=== PATIENT | female | born 1960 | race Caucasian/White ===

== ENCOUNTER 2018-07-15 07:58 | Outpatient (CLI) | payer OTHER, SELFPAY ==
[2018-07-15 10:43] LABS: Glucose 115 mg/dL (70-100)
== END 2018-07-15 08:18 ==
PROVIDERS: PCP General Practice; Visit Provider General Practice
DX: R73.03 Prediabetes (principal)
CPT/HCPCS: 36415; 82947

== ENCOUNTER 2018-12-29 07:14 | Outpatient (CLI) | payer OTHER, SELFPAY ==
[2018-12-29 09:42] LABS: Glucose 91 mg/dL (70-100)
== END 2018-12-29 07:34 ==
PROVIDERS: PCP General Practice; Visit Provider General Practice
DX: R73.09 Other abnormal glucose (principal)
CPT/HCPCS: 36415; 82947

== ENCOUNTER 2022-04-07 21:08 | Observation (INO) | payer OTHER, SELFPAY ==
[2022-04-07] VITALS (22 sets, daily range): BP systolic 147–196; BP diastolic 94–120; PULSE 78–118; RESP 16–27; TEMP 36.8; O2SAT 95–98
--- NOTE | 2022-04-07 21:00 | RT.EKG_ITS ---
APPROVED REPORT Exam: Resting ECG Reason for Exam: chest pain Patient Location: E HR:113 bpm ECG Measurements Heart Rate 113 AXIS MI 152 P 15 QRSd 106 QRS -6 QT 338 T -5 QTc 463 Conclusion Sinus tachycardia...rate> 99 Probable left atrial enlargement...P >50mS, <-0.10mV V1
--- NOTE | 2022-04-07 21:00 | DI.RAD_ITS ---
Exam(s) XR PORTABLE CHEST AP EXAM: XR PORTABLE CHEST AP CLINICAL HISTORY: chest pain. TECHNIQUE: 2D digital imaging was performed. COMPARISON: No exams were available for comparison FINDINGS: Single AP portable view. Heart size is upper normal. The mediastinum is not widened. Lungs are clear. No infiltrates nor obvious pleural effusions. IMPRESSION: No acute pulmonary findings on this single AP portable view of the chest. DATA REPOSITORY: RADIATION DOSE DELIVERED: All CT scans at this facility use at least one of these dose optimization techniques: automated exposure control; mA and/or kV adjustment per patient size (includes targeted e xams where dose is matched to clinical indication); or iterative reconstruction.
[2022-04-07 21:42] LABS: Abs Immature Grans 0.03 10^3/uL (0.0-0.06); Absolute Basophil Count 0.02 10^3/uL (0.0-0.2); Absolute Eosinophil Count 0.08 10^3/uL (0.0-0.7); Absolute Lymphocyte Count 1.76 10^3/uL (1.2-3.4); Absolute Monocyte Count 0.78 10^3/uL (0.1-0.8); Absolute Neutrophil Count 4.85 10^3/uL (1.2-6.7); Basophils % 0.3; Eosinophils % 1.1; HCT 47.1 % (36.0-46.0); HGB 16.5 g/dL (11.2-15.7); Immature Grans % 0.4; Lymphocytes % 23.4; MCH 31.9 pg (27.0-33.0); MCV 91 fL (80-95); MPV 9.5 fL (8.0-11.0); Monocytes % 10.4; Neutrophils % 64.4; Platelet Count 153 10^3/uL (130-400); RBC 5.17 10^6/uL (3.93-5.22); WBC 7.52 10^3/uL (4.4-10.8)
[2022-04-07] MEDS: nitroGLYcerin 0.4 MG TAB SL (21:43)
[2022-04-07] MEDS: Aspirin 81 MG CHEW 324 MG CH (21:43)
[2022-04-07] MEDS: Normal Saline 500 ML IV (21:43)
--- NOTE | 2022-04-07 21:45 | DI.CT_ITS ---
Exam(s) CT CHEST PE CTA EXAM: CT CHEST PE CTA CLINICAL HISTORY: shortness of breath, tachycardia, chest pain. TECHNIQUE: Imaging Protocol: CT angiography of the chest was performed using pulmonary embolus loretta col. Multi planar reconstructions were performed. CONTRAST MATERIAL: Intravenous: Omnipaque 350 Contrast volume: 100 cc COMPARISON: CR,XR XR PORTABLE CHEST AP from 04/07/2022 FINDINGS: CHEST: PULMONARY ARTERIES: There are no intraluminal filling defects to suggest acute pulmonary emboli. LUNGS: There are no infiltrates nor evidence of pulmonary infarction.. There are no pleural effusions . MEDIASTINUM: There is no hilar nor mediastinal adenopathy. Visualized thyroid unremarkable. CARDIAC: Heart size is upper normal. There is no pericardial effusion.Caliber of the thoracic aorta is within normal limits. There is no significant shift of the interventricular septum. PARTIALLY VISUALIZED UPPERMOST ABDOMEN: There is a 6 cm cyst in the superior the right kidney partial ly included in the field view. No adrenal masses OSSEOUS: No significant osseous lesions.. IMPRESSION: 1. No evidence of acute pulmonary emboli. No evidence of pulmonary infarction.No pleural effusions. 2. No confluent pulmonary infiltrates. 3. No significant intrathoracic adenopathy 6 cm cyst right kidney partially included in the field of view RADIATION DOSE DELIVERED: 375.72mGy.cm Total DLP DATA REPOSITORY: All CT scans at this facility are submitted to the National Radiology Data Registry (NRDR) Dose Index Registry (DIR) with the [employer] (ACR). RADIATION OPTIMIZATION: All CT scans at this facility use at least one of these dose optimization te chniques: automated exposure control; mA and/or kV adjustment per patient size (includes targeted exa ms where dose is matched to clinical indication); or iterative reconstruction.
[2022-04-07 22:12] LABS: Source Nasal/Nares
[2022-04-07] MEDS: Metoprolol 5 MG/5 ML VIAL IVP (22:14)
[2022-04-07 22:27] LABS: ALT 76 U/L (16-63); AST 58 U/L (15-37); Albumin 3.8 g/dL (3.4-5.0); Alkaline Phosphatase 54 U/L (46-116); Anion Gap 10.9 mmol/L (3-11); BUN 13 mg/dL (7-18); Bilirubin, Total 0.7 mg/dL (0.2-1.0); CO2 28.1 mmol/L (21.0-32.0); CREATININE 0.8 mg/dL (0.70-1.30); Calcium 9.3 mg/dL (8.5-10.1); Chloride 101 mmol/L (98-107); Glucose 115 mg/dL (74-106); Potassium 3.7 mmol/L (3.5-5.1); Sodium 140 mmol/L (136-145); Total Protein 6.6 g/dL (6.4-8.2); Troponin I < 50 ng/L (<or=60)
--- NOTE | 2022-04-07 22:43 | W.ED.GENAD ---
Discharge Plan Disposition Patient Disposition: [facility] INPATIENT Condition: Stable Discharge Details Clinical Impression: Essential hypertension, Chest pain Admit Date/Time: 04/07/22 23:57 Admit Provider: Cristofer Mata Attending Provider: Cristofer Mata Primary Care Provider: Cristofer Mata ED Provider: Rizwana Morrison Discharge Data Discharge Date/Time-TO BE ENTERED AT DEPARTURE: 04/08/22 01:02 Medical Decision Making Heart score of 4, concerning history and significant family history of coronary artery disease EKG does not show evidence of acute ischemia Patient presented tachycardic and significantly hypertensive blood pressure 190/115 After Lopressor, blood pressure improved After nitroglycerin, his chest pain was resolved Think the patient would benefit from stress test He received aspirin upon arrival, 324 Given his tachycardia, chest discomfort did order CTA which is pending LFTs are mildly elevated likely consistent with his history of alcoholism At this time I think the patient should be hospitalized for cardiac observation with serial troponin and stress test Medical Records Medical records reviewed: Yes I reviewed the patient's medical records. Lab Data Lab results reviewed: Yes I reviewed the patient's lab results. HPI General Date/Time Provider Initiated Documentation: 04/07/22 21:10. HPI Narrative: This 62-year-old gentleman with history of hypertension presents with report of intermittent chest pain over the course of the past week and a half with constant chest pain at approximately 130 today. Denies known exertional component. Denies shortness of breath. States he felt very tired all weekend. He is not been able to exert himself secondary to fatigue. He denies any calf pain or swelling. He has not had primary care provider for the past 2+ years reportedly. He was on blood pressure medication previously which she has not taken. He denies known history of hyperlipidemia. He does have significant family cardiac history per patient. Does not smoke tobacco. Drinks alcohol daily, 2-3 beers daily per patient. Denies recent flights, surgeries, long. Denies any calf pain or swelling. Related Data Home Medications Medication Instructions Recorded Confirmed atenolol 25 mg tablet 25 mg PO DAILY #30 tabs 04/08/22 benazepril 20 mg tablet 20 mg PO DAILY #30 tabs 04/08/22 hydrochlorothiazide 25 mg tablet 25 mg PO DAILY #30 tabs 04/08/22 nitroglycerin 0.4 mg sublingual 0.4 mg sublingual Q5 MIN PRN X3 04/08/22 tablet PRN chest pain #30 tabs Previous Rx's Medication Instructions Recorded atenolol 25 mg tablet 25 mg PO DAILY #30 tabs 04/08/22 benazepril 20 mg tablet 20 mg PO DAILY #30 tabs 04/08/22 hydrochlorothiazide 25 mg tablet 25 mg PO DAILY #30 tabs 04/08/22 nitroglycerin 0.4 mg sublingual 0.4 mg sublingual Q5 MIN PRN X3 04/08/22 tablet PRN chest pain #30 tabs Allergies Allergy/AdvReac Type Severity Reaction Status Date / Time No Known Allergies Allergy Unverified 04/08/22 09:08 General Stated Complaint: Chest Pain CHRIS: 2 Review of Systems All systems reviewed & are unremarkable except as noted in HPI and below PFSH All Active Problems (Updated 04/09/22 @ 10:01 by RAVIN Vogel) Chest pain (Acute) Essential hypertension (Acute) Social History Smoking/Tobacco Use Status: Never Smoking risk assessment performed?: Yes Alcohol Intake: current Alcohol Intake frequency: a few times a week Alcohol type: beer Drug use: Never Substance use type: does not use Do you feel safe at home: Yes Do you feel safe in your relationship?: Yes Exam Const General: cooperative, comfortable and no acute distress Eyes Pupils: PERRL Resp Effort & Inspection: normal respiratory effort Auscultation: clear to auscultation bilaterally Cardio Rate: regular rate Rhythm: regular rhythm GI Inspection: normal to inspection Other: non tender abdominal exam Skin General skin exam: no rashes or lesions noted Neuro General: patient alert and patient oriented x3 Course Vital Signs Vital signs: Vital Signs Temperature 36.8 C 04/07/22 21:10 Pulse 115 H 04/07/22 21:10 Respiratory Rate 18 04/07/22 21:10 Blood Pressure 193/117 H 04/07/22 21:10 Pulse Oximetry 95 04/07/22 21:10 Temperature 36.8 C 04/07/22 21:10 Temperature Source Temporal Artery Scan 04/07/22 21:10 Pulse 80 04/07/22 22:31 Pulse 79 04/07/22 22:31 Respiratory Rate 20 04/07/22 22:31 Respiratory Effort Non-Labored 04/07/22 21:44 Respiratory Depth Normal 04/07/22 21:44 Respiratory Pattern Normal 04/07/22 21:44 Blood Pressure 151/94 H 04/07/22 22:31 Blood Pressure Mean 108 04/07/22 22:31 Blood Pressure Position Supine 04/07/22 21:10 Pulse Oximetry 98 04/07/22 21:20 Oxygen Delivery Method Room Air 04/07/22 21:10 Oxygen Flow Rate 0 04/07/22 21:10 Pain Level 5 04/07/22 21:10 Lab/Test Results Lab/Test Results: Laboratory Tests Range/Units 04/07/22 04/07/22 04/07/22 20:05 21:35 21:35 WBC (4.4-10.8) 10^3/uL 7.52 RBC (3.93-5.22) 10^6/uL 5.17 Hgb (11.2-15.7) g/dL 16.5 H Hct (36.0-46.0) % 47.1 H MCV (80-95) fL 91 MCH (27.0-33.0) pg 31.9 MCHC (32.0-36.0) % 35.0 RDW (11.7-14.6) % 12.0 Plt Count (130-400) 10^3/uL 153 MPV (8.0-11.0) fL 9.5 Immature Gran % 0.4 Neutrophils % 64.4 Lymphocytes % 23.4 Monocytes % 10.4 Eosinophils % 1.1 Basophils % 0.3 Nucleated RBC % (0.0-0.3) % 0.0 Absolute Neutrophils (1.2-6.7) 10^3/uL 4.85 Absolute Lymphocytes (1.2-3.4) 10^3/uL 1.76 Absolute Monocytes (0.1-0.8) 10^3/uL 0.78 Absolute Eosinophils (0.0-0.7) 10^3/uL 0.08 Absolute Basophils (0.0-0.2) 10^3/uL 0.02 D-Dimer Sodium Cancelled Potassium Cancelled Chloride Cancelled Carbon Dioxide Cancelled Anion Gap Cancelled BUN Cancelled Creatinine Cancelled Estimated GFR/1.73 m2 Cancelled Glucose Cancelled Calcium Cancelled Magnesium Cancelled Total Bilirubin Cancelled AST Cancelled ALT Cancelled Alkaline Phosphatase Cancelled Troponin I Cancelled Total Protein Cancelled Albumin Cancelled COVID-19 Source Nasal/Nares Range/Units 04/07/22 04/07/22 21:35 22:05 WBC (4.4-10.8) 10^3/uL RBC (3.93-5.22) 10^6/uL Hgb (11.2-15.7) g/dL Hct (36.0-46.0) % MCV (80-95) fL MCH (27.0-33.0) pg MCHC (32.0-36.0) % RDW (11.7-14.6) % Plt Count (130-400) 10^3/uL MPV (8.0-11.0) fL Immature Gran % Neutrophils % Lymphocytes % Monocytes % Eosinophils % Basophils % Nucleated RBC % (0.0-0.3) % Absolute Neutrophils (1.2-6.7) 10^3/uL Absolute Lymphocytes (1.2-3.4) 10^3/uL Absolute Monocytes (0.1-0.8) 10^3/uL Absolute Eosinophils (0.0-0.7) 10^3/uL Absolute Basophils (0.0-0.2) 10^3/uL D-Dimer Cancelled Sodium 140 Potassium 3.7 Chloride 101 Carbon Dioxide 28.1 Anion Gap 10.9 BUN 13 Creatinine 0.8 Estimated GFR/1.73 m2 >= 60.00 Glucose 115 H Calcium 9.3 Magnesium 2.0 Total Bilirubin 0.7 AST 58 H ALT 76 H Alkaline Phosphatase 54 Troponin I < 50 Total Protein 6.6 Albumin 3.8 COVID-19 Source PAWSS Have you Been Recently Intoxicated or Drunk Within the Last 30 days?: No Have you Ever Experienced Previous Episodes of Alcohol Withdrawal?: No Have you ever Experienced Withdrawal Seizures?: No Have you ever Experienced Delirium Tremens(DT)s?: No Have you ever undergone Alcohol Rehabilitation Treatment (i.e, inpt ot outpatient treatment programs)?: No Have you ever Experienced Blackouts?: No Have you ever Combined Alcohol with other Downers within the last 90 days?: No Have you ever Combined Alcohol with any other Substance of Abuse during the last 90 days?: No Positive Blood Alcohol level on Presentation? [PCS.BAL]: No Evidence of Increased Autonomic Activity (i.e. HR>120, tremor, sweating, agitation, nausea)?: No Result: 0
[2022-04-07] MEDS: Metoprolol 25 MG TAB PO (22:50)
[2022-04-07] MEDS: Omnipaque 350 MG/ML 100 ML BTL IJ (22:50)
[2022-04-07] MEDS: Normal Saline Flush 10 ML SYR IVP (22:51)
--- NOTE | 2022-04-07 23:01 | DI.VRAD_ITS ---
PROCEDURE INFORMATION: Exam: XR Chest Exam date and time: 04/07/2022 9:40 PM Age: 62 years old Clinical indication: Other: Chest pain TECHNIQUE: Imaging protocol: Radiologic exam of the chest. Views: 1 view. COMPARISON: No relevant prior studies available. FINDINGS: Tubes, catheters and devices: Monitoring wires noted. Lungs: Lung volumes are low. Pulmonary vessels are not congested. No consolidation. Pleural spaces: Unremarkable. No pleural effusion. No pneumothorax. Heart/Mediastinum: Unremarkable. No cardiomegaly. Bones/joints: Unremarkable. Gastrointestinal tract: Stomach is distended with air. IMPRESSION: No acute cardiopulmonary abnormality. Dictated and Authenticated by: Vlad Almeida MD. Ordering:KENDELL Wagoner MD
[2022-04-07 23:07] LABS: COVID-19 PCR Negative (Negative)
--- NOTE | 2022-04-07 23:44 | W.PM.HP.N ---
Date of service: 04/07/22 Time of Service: 23:44 Assessment and Plan Assessment and plan (1) Chest pain: Status: Acute Assessment and plan: CP. Moderate risk coronary insufficiency, though notably atypical features include non-ischemic EKG with pain, negative trop after several hours of pain, and lack of precipitation with climbing a grade to day. Nertheless there are suffficient features of concern that I think we should trend troponins and then stress in AM. Will not give additional beta omar (unless necessary) in order to preserve sensitivity of stress test. History of Present Illness History of Present Illness Chief Complaint: CP Narrative: 62 male with h/o HTN, off meds for several years. Here with one wekk of crescendo chest pain, initially lasting just seconds, but over last 1-2 days has been more persistent, lasting today over 2 hours, and more intense. Pain is left sided, a pressure, non-radiating, w/o associated nausea, diaphoresis or dizziness. Pain has been at rest, and he is otherwise quite sedentary, though today he did walk up a hill (says he got SOB, but no CP with this). In ER EKG (with pain) non-ischemic and initial trop negative. CXR w/o acute disease, though considerable quantity of air noted in stomach (notably patient states he has been burping more recently but states this has had no effect on the CP). Patient given NTG x1 with resolution of pain within 10-15 minutes. Also given Lopressor 5 IV, the 25 PO. I was asked to exaluate for admission. At present he states he is comfortable and is asking about possibly going home. Review of Systems Narrative: per HPI PFSH All Active Problems (Updated 04/07/22 @ 23:53 by Cristofer Mata MD) Chest pain (Acute) Social History Smoking/Tobacco Use Status: Never Smoking risk assessment performed?: Yes Alcohol Intake: current Alcohol Intake frequency: a few times a week Alcohol type: beer Drug use: Never Substance use type: does not use Do you feel safe at home: Yes Do you feel safe in your relationship?: Yes Meds Allergies and Home Medications Allergies Allergy/AdvReac Type Severity Reaction Status Date / Time No Known Allergies Allergy Unverified 04/07/22 21:15 Home Medications Medication Instructions Recorded Confirmed Type Unknown [No Known Home Meds] 04/07/22 04/07/22 History Exam Narrative Exam Narrative: 147/98 (initial 196/120), 78, 36.8, 20, 98% RA. HEENT atraumatic; neck supple, JVP approx 6-7 cm; lungs clear; heart RRR w/o MRG; abdomen soft and NT; extremities w/o edema, pulses 2+/=; neuro Ox3, lucid, moves all 4s Results Labs Result diagrams: 04/07/22 21:35 04/07/22 22:05 Labs: Laboratory Results - last 24 hr 04/07/22 04/07/22 04/07/22 20:05 21:35 21:35 WBC 7.52 RBC 5.17 Hgb 16.5 H Hct 47.1 H MCV 91 MCH 31.9 MCHC 35.0 RDW 12.0 Plt Count 153 MPV 9.5 Immature Gran % 0.4 Neutrophils % 64.4 Lymphocytes % 23.4 Monocytes % 10.4 Eosinophils % 1.1 Basophils % 0.3 Nucleated RBC % 0.0 Absolute Neutrophils 4.85 Absolute Lymphocytes 1.76 Absolute Monocytes 0.78 Absolute Eosinophils 0.08 Absolute Basophils 0.02 D-Dimer Sodium Cancelled Potassium Cancelled Chloride Cancelled Carbon Dioxide Cancelled Anion Gap Cancelled BUN Cancelled Creatinine Cancelled Estimated GFR/1.73 m2 Cancelled Glucose Cancelled Calcium Cancelled Magnesium Cancelled Total Bilirubin Cancelled AST Cancelled ALT Cancelled Alkaline Phosphatase Cancelled Troponin I Cancelled Total Protein Cancelled Albumin Cancelled COVID-19 Source Nasal/Nares SARS-CoV-2 (PCR) Negative 04/07/22 04/07/22 21:35 22:05 WBC RBC Hgb Hct MCV MCH MCHC RDW Plt Count MPV Immature Gran % Neutrophils % Lymphocytes % Monocytes % Eosinophils % Basophils % Nucleated RBC % Absolute Neutrophils Absolute Lymphocytes Absolute Monocytes Absolute Eosinophils Absolute Basophils D-Dimer Cancelled Sodium 140 Potassium 3.7 Chloride 101 Carbon Dioxide 28.1 Anion Gap 10.9 BUN 13 Creatinine 0.8 Estimated GFR/1.73 m2 >= 60.00 Glucose 115 H Calcium 9.3 Magnesium 2.0 Total Bilirubin 0.7 AST 58 H ALT 76 H Alkaline Phosphatase 54 Troponin I < 50 Total Protein 6.6 Albumin 3.8 COVID-19 Source SARS-CoV-2 (PCR) Last Vital Signs Temp 36.8 C 04/07/22 21:10 Pulse 78 04/07/22 22:45 Resp 21 04/07/22 22:50 BP 147/98 H 04/07/22 22:45 Pulse Ox 98 04/07/22 21:20 PAWSS Have you Been Recently Intoxicated or Drunk Within the Last 30 days?: No Have you Ever Experienced Previous Episodes of Alcohol Withdrawal?: No Have you ever Experienced Withdrawal Seizures?: No Have you ever Experienced Delirium Tremens(DT)s?: No Have you ever undergone Alcohol Rehabilitation Treatment (i.e, inpt ot outpatient treatment programs)?: No Have you ever Experienced Blackouts?: No Have you ever Combined Alcohol with other Downers within the last 90 days?: No Have you ever Combined Alcohol with any other Substance of Abuse during the last 90 days?: No Positive Blood Alcohol level on Presentation? [PCS.BAL]: No Evidence of Increased Autonomic Activity (i.e. HR>120, tremor, sweating, agitation, nausea)?: No Result: 0
--- NOTE | 2022-04-08 | ETT_ITS ---
APPROVED REPORT Exam: Exercise Treadmill Patient Location: In-Patient Room/Bed: [facility] Stress Nurse: Miya Swain RN Ordering Provider:LEONEL SAAVEDRA, Contact Number: BMI: 29.17 Baseline Rhythm: Sinus Rhythm Indications: CHEST PAIN Medical History Medical History: HTN Cardiac Medications: None Allergies: No known drug allergies Cardiac Risk Factors: FHX of CAD, HTN Previous Cardiac Procedures: None Pretest Chest Pain Characteristics: No chest pain Exercise History: Sedentary Physical Disabilities: None Lung Sounds: Clear to auscultation Heart Sounds: Regular Stress Test Details Test: Exercise stress testing was performed using a Allen protocol. Rest Stress HR Resting HR Supine: 85 bpm Max Heart Rate (APMHR): 157 bpm Resting HR Standin bpm Target HR (85% APMHR): 133 bpm Max HR Achieved: 174 bpm % of APMHR: 110 Recovery HR: 101 bpm HR response to stress: Normal HR response to stress BP Resting BP Supine: 148/88 mmHg Resting BP Standin/92 mmHg Max BP: 182/90 mmHg Recovery BP: 152/96 mmHg BP response to stress: Normal blood pressure response to stress. ECG Resting ECG: Sinus Rhythm Ectopy: None Stress ECG: Sinus Tachycardia ST Change: No significant ST segment changes noted Arrhythmia: None Recovery ECG: Sinus Tachycardia Recovery ST Change: No significant ST segment changes noted Recovery Arrhythmia: None Clinical Reason for Termination: Fatigue Stress Symptoms: Chest pain Exercise duration: 09 min27 sec Highest Stage Reached: Stage 4: 4.2 mph at 16% grade. Exercise capacity: 10.89 METs Maria Treadmill Score: 5 Rate Pressure Product: [id number] Stress ECG Conclusion 1. Resting electrocardiogram was within normal limits 2. Patient exercised on the Allen protocol and completed a workload of 10.89 METS 3. Normal heart rate and blood pressure response to exercise. Patient achieved greater than 100% of predicted heart rate for age 4. There was no electrocardiographic evidence of myocardial ischemia 5. There were no significant dysrhythmias Maria Treadmill Score is 5 which is Low risk. Stress Test Summary STAGE Time (mins) Speed (mph) Grade (%) HR BP SYMPTOMS METS Supine 85 148/88 Standing 86 144/92 1 3 1.7 10 113 148/92 4.6 2 6 2.5 12 125 156/94 7 3 9 3.4 14 150 164/98 10.2 4 12 4.2 16 2/10 chest pressure 12.9 1 min recovery 136 182/90 chest pressure resolved shortly after exercise. 3 min recovery 109 172/92 6 min recovery 103 152/96 9 min recovery 101
[2022-04-08 00:28] LABS: Troponin I < 50 ng/L (<or=60)
--- NOTE | 2022-04-08 00:31 | DI.VRAD_ITS ---
PROCEDURE INFORMATION: Exam: CTA Chest With Contrast Exam date and time: 04/07/2022 10:47 PM Age: 62 years old Clinical indication: Angina and shortness of breath; Patient HX: SOB, tachycardia, chest pain TECHNIQUE: Imaging protocol: Computed tomographic angiography of the chest with contrast. 3D rendering (Not supervised by radiologist): MIP and/or 3D reconstructed images were created by the technologist. Radiation optimization: All CT scans at this facility use at least one of these dose optimization techniques: automated exposure control; mA and/or kV adjustment per patient size (includes targeted exams where dose is matched to clinical indication); or iterative reconstruction. Contrast material: OMNIPAQUE 350; Contrast volume: 100 ml; Contrast route: INTRAVENOUS (IV); COMPARISON: XR PORTABLE CHEST AP 04/07/2022 9:40 PM FINDINGS: Pulmonary arteries: The pulmonary arteries enhance appropriately with no evidence of pulmonary embolism. Aorta: The aorta enhances appropriately without evidence of dissection or aneurysm. No mediastinal hematoma. Moderate aortic ectasia/tortuosity. Thyroid: The visualized thyroid gland demonstrates no gross abnormality. Lungs: Mild bilateral bronchial wall thickening consistent with bronchitis or bronchial edema. No bronchiectasis. No bronchial occlusions. Patchy mild bilateral perihilar and basilar alveolar attenuation which is likely subsegmental atelectasis related to bronchitis/bronchiolitis or hypoventilatory changes. Patchy mild edema or pneumonitis considered less likely. No pulmonary mass lesions are identified. Pleural spaces: No pleural effusion. No pneumothorax. Heart: Moderate cardiomegaly.Moderate coronary artery calcification. No pericardial effusion. Mediastinal space: The esophagus is largely contracted but demonstrates no gross abnormality. Lymph nodes: No supraclavicular or axillary adenopathy. Borderline enlarged right paratracheal node measuring 9 mm short axis, nonspecific. Kidneys and ureters: There is a low-density circumscribed right renal cortical lesion suggesting renal cyst. No further imaging evaluation is required. Bones/joints: No acute osseous abnormalities are identified. Soft tissues: The soft tissues of the chest wall demonstrate no acute abnormality. IMPRESSION: 1. No evidence of pulmonary embolism or aortic dissection. 2. Mild bronchial wall thickening suggesting bronchitis or bronchial edema. 3. Patchy mild perihilar and basilar alveolar attenuation is likely subsegmental atelectasis related to bronchiolitis or hypoventilatory changes. Patchy mild edema or pneumonitis less likely. No consolidations. 4. Moderate cardiomegaly and moderate coronary artery calcification. 5. Borderline enlarged right paratracheal node, nonspecific. 6. Additional nonemergent findings detailed above. Dictated and Authenticated by: Alejandro Betancourt MD. Ordering:KENDELL Wagoner MD
[2022-04-08 01:21] VITALS: BP 165/102; PULSE 77; RESP 18; TEMP 36.5; O2SAT 97
[2022-04-08 01:24] VITALS: BP 165/102; PULSE 77; RESP 18; TEMP 36.5; O2SAT 97
[2022-04-08 01:47] VITALS: BP 165/99
[2022-04-08 02:50] VITALS: PULSE 72
[2022-04-08 07:00] VITALS: PULSE 90
[2022-04-08 07:13] LABS: Troponin I < 50 ng/L (<or=60)
[2022-04-08 08:25] VITALS: BP 158/96; PULSE 90; RESP 16; TEMP 36.7; O2SAT 97
--- NOTE | 2022-04-08 10:04 | PDOC.CMIN ---
- If Service Date Differs Date of service: 04/08/22 Time of Service: 10:05 Care Management Initial Assess REASON FOR HOSPITALIZATION:: CP PAST MEDICAL HISTORY/PAST SURGICAL HISTORY:: HTN, Chest Pain PREVIOUS FUNCTIONAL STATUS/SOCIAL/FAMILY SUPPORTS:: Resides in [place], [place] with Ayesha. Independent at baseline in community. CURRENT FUNCTIONAL STATUS:: Cesar was preparing for discharge. ADVANCE DIRECTIVES:: None on file. Has patient been provided with info about the portal/API?: Yes Did the patient sign up for the portal?: No CODE STATUS:: Full Code INSURANCE COVERAGE / FINANCIAL ISSUES:: [employer] CURRENT HOME/COMMUNITY SERVICES/EQUIPMENT:: None, currently. PRIMARY CARE PHYSICIAN:: Cristofer Mata POTENTIAL DISCHARGE NEEDS:: MPI Stress Test PATIENT/FAMILY EDUCATION NEEDS:: Review discharge instructions, discuss Ask Me Three. ANTICIPATED BARRIERS TO DISCHARGE:: None identified. TRANSPORTATION:: Via private vehicle with Ayesha. PLAN:: Cesar will return home once medically cleared. He will follow up with his PCP and plan of care as prescribed. He will transport via private vehicle with his .
--- NOTE | 2022-04-08 11:17 | PDOC.CMDIS ---
- If Service Date Differs Date of service: 04/08/22 Time of Service: 11:17 LACE Index Scoring Tool - Questions: Length of Stay (in days): 1 Acuity (Admit via E.D.?): Yes E.D. Visits: 1 - Answers: Total Score: 5 Risk of Readmission: Low Risk Care Management Discharge Reason for Hospitalization: CP Discharge Plan: Cesar will return home once medically cleared. He will follow up with his PCP and plan of care as prescribed. He will transport via private vehicle with his . Patient/Family Education Needs: Review discharge instructions, discuss Ask Me Three.
[2022-04-08] MEDS: Simethicone 80 MG CHEW 240 MG PO (11:54)
--- NOTE | 2022-04-08 12:26 | DSE_ITS ---
Date of service: 04/08/22 Time of Service: 12: DS: Diagnosis Discharge Diagnosis (1) Chest pain: Start date: 04/08/22 Start time: : Status: Acute Discharge Plan Disposition Patient Disposition: HOME Condition: Good Discharge Details Reason For Visit: CP Admit Date/Time: 04/07/22 23:57 Admit Provider: Leonel Mata Attending Provider: Leonel Mata Primary Care Provider: Leonel Mata Home Meds and New Rx's Prescriptions: New nitroglycerin 0.4 mg Tablet, Sublingual 0.4 mg sublingual Q5 MIN PRN X3 PRN (Reason: chest pain) Qty: 30 0RF hydrochlorothiazide 25 mg tablet 25 mg PO DAILY Qty: 30 2RF benazepril 20 mg tablet 20 mg PO DAILY Qty: 30 2RF atenolol 25 mg tablet 25 mg PO DAILY Qty: 30 2RF Discharge Instructions Instructions: Atenolol (By mouth), Hydrochlorothiazide (By mouth), Nitroglycerin, Rapid Release (By mouth), Benazepril (By mouth), Chest Pain (DC) Additional Instructions: Chest pain not relieved by nitroglycerin as prescribed -call 911 or immediately go to the closest Emergency Department. Take medications as prescribed. Continue home medicaiton; we did send in a new prescription for you. Try simethicone (gas-x) for belly gas. Follow up the first week of April - it will be with [facility] in [place]. You can establish care with [facility], they will be in touch with you, they are booking out to [facility]. Your PCP will manage your blood pressure medications and any referrals. Stand Alone Forms: Nursing Discharge Form Referrals: Alicia Henao MD, KARI [[facility]] - (Please call to make a follow up appointment for 2 weeks) Activity:: Activity as Tolerated Equipment/Supplies:: No Equipment Needed Diet:: Low Sodium DS: Summary Time Spent with Patient providing and/or coordinating discharge services: Less than 30 minutes Status at Discharge Functional status at discharge: independent ambulation Overall status at discharge: patient is back to baseline Mental Status: mental status grossly normal Speech and Movement: speech and movement normal Mood: congruent mood Affect: normal affect Exam Psych Mental Status: mental status grossly normal Speech and Movement: speech and movement normal Mood: congruent mood Affect: normal affect DS: Data Vitals/I&O Vitals and I&O: Vital Signs Temperature 36.7 C 04/08/22 08:25 Temperature Source Tympanic 04/08/22 08:25 Pulse 90 04/08/22 08:25 Pulse Rhythm Regular 04/08/22 07:20 Pulse 81 04/07/22 22:50 Respiratory Rate 16 04/08/22 08:25 Respiratory Effort Non-Labored 04/08/22 07:20 Respiratory Depth Normal 04/08/22 07:20 Respiratory Pattern Normal 04/08/22 07:20 Blood Pressure 158/96 H 04/08/22 08:25 Blood Pressure Mean 110 04/07/22 22:45 Blood Pressure Position Supine 04/07/22 21:10 Pulse Oximetry 97 04/08/22 08:25 Oxygen Delivery Method Room Air 04/08/22 08:25 Oxygen Flow Rate 0 04/08/22 08:25 Pain Level 0 04/08/22 08:25 Intake & Output 04/07/22 04/08/22 04/08/22 23:59 11:59 23:59 Intake Total 120 / 120 Output Total Balance 119 / 119 Weight 77.111 kg 77.1 kg Intake: IV Oral 120 / 120 Output: Urine Other: Urine Color Yellow Urine Appearance Clear Urine Odor None Comment voided in the toilet per patient Voiding Methods Toilet Data Completed and Pending Completed studies during hospitalization [Text1]: EXAM: ? CT CHEST PE CTA CLINICAL HISTORY: ? shortness of breath, tachycardia, chest pain. ? TECHNIQUE:? Imaging Protocol: CT angiography of the chest was performed using pulmonary embolus protocol.? Multi planar reconstructions were performed. CONTRAST MATERIAL:? Intravenous: Omnipaque 350 Contrast volume: 100 cc COMPARISON:? CR,XR XR PORTABLE CHEST AP from 04/07/2022 FINDINGS: CHEST: PULMONARY ARTERIES: There are no intraluminal filling defects to suggest acute pulmonary emboli. LUNGS: There are no infiltrates nor evidence of pulmonary infarction.. There are no pleural effusions. MEDIASTINUM: There is no hilar nor mediastinal adenopathy. Visualized thyroid unremarkable. CARDIAC: Heart size is upper normal.? There is no pericardial effusion.Caliber of the thoracic aorta is within normal limits.? There is no significant shift of the interventricular septum. PARTIALLY VISUALIZED UPPERMOST ABDOMEN: There is a 6 cm cyst in the superior the right kidney partially included in the field view.? No adrenal masses OSSEOUS: No significant osseous lesions.. IMPRESSION: 1. No evidence of acute pulmonary emboli.? No evidence of pulmonary infarction.No pleural effusions. 2. No confluent pulmonary infiltrates. 3. No significant intrathoracic adenopathy 6 cm cyst right kidney partially included in the field of view Chest Xray IMPRESSION: No acute cardiopulmonary abnormality. Exercise Stress Test Exam:? Exercise Treadmill Patient Location: In-Patient ? ? Room/Bed:? 205 Stress Nurse: Miya Swain RN Ordering Provider:LEONEL MATA, ? ? Contact Number:? BMI: 29.17 Baseline Rhythm: Sinus Rhythm Indications: CHEST PAIN Medical History Medical History: HTN Cardiac Medications: None Allergies: No known drug allergies Cardiac Risk Factors: FHX of CAD, HTN Previous Cardiac Procedures: None Pretest Chest Pain Characteristics: No chest pain Exercise History: Sedentary Physical Disabilities: None Lung Sounds: Clear to auscultation Heart Sounds: Regular Stress Test Details Test:? Exercise stress testing was performed using a Allen protocol. Rest Stress HR Resting HR Supine: 85 bpm Max Heart Rate (APMHR): 157 bpm? Resting HR Standin bpm Target HR (85% APMHR): 133 bpm Max HR Achieved:? 174 bpm % of APMHR: ? 110 Recovery HR:? 101 bpm HR response to stress: Normal HR response to stress BP Resting BP Supine:? 148/88 mmHg Resting BP Standing:? 144/92 mmHg Max BP: ? ? ? 182/90 mmHg Recovery BP: ? ? ? 152/96 mmHg BP response to stress: Normal blood pressure response to stress. ECG Resting ECG:? Sinus Rhythm Ectopy: None Stress ECG: ? ? Sinus Tachycardia ST Change: No significant ST segment changes noted Arrhythmia:? ? None Recovery ECG: Sinus Tachycardia Recovery ST Change: No significant ST segment changes noted Recovery Arrhythmia: None Clinical Reason for Termination: Fatigue Stress Symptoms: Chest pain Exercise duration: 09 min27 sec Highest Stage Reached: Stage 4: 4.2 mph at 16% grade. Exercise capacity: 10.89 METs Maria Treadmill Score: 5 Rate Pressure Product: [id number] Stress ECG Conclusion 1. Resting electrocardiogram was within normal limits 2. Patient exercised on the Allen protocol and completed a workload of 10.89 METS 3. Normal heart rate and blood pressure response to exercise.? Patient achieved greater than 100% of predicted heart rate for age 4. There was no electrocardiographic evidence of myocardial ischemia 5. There were no significant dysrhythmias Maria Treadmill Score is 5 which is Low risk. Labs on day of discharge: Labs from last 24 hours 04/08/22 04/08/22 04/07/22 06:27 00:02 22:05 WBC RBC Hgb Hct MCV MCH MCHC RDW Plt Count MPV Immature Gran % Neutrophils % Lymphocytes % Monocytes % Eosinophils % Basophils % Nucleated RBC % Absolute Neutrophils Absolute Lymphocytes Absolute Monocytes Absolute Eosinophils Absolute Basophils D-Dimer Sodium 140 Potassium 3.7 Chloride 101 Carbon Dioxide 28.1 Anion Gap 10.9 BUN 13 Creatinine 0.8 Estimated GFR/1.73 m2 >= 60.00 Glucose 115 H Calcium 9.3 Magnesium 2.0 Total Bilirubin 0.7 AST 58 H ALT 76 H Alkaline Phosphatase 54 Troponin I < 50 < 50 < 50 Total Protein 6.6 Albumin 3.8 COVID-19 Source SARS-CoV-2 (PCR) 04/07/22 04/07/22 04/07/22 21:35 21:35 21:35 WBC 7.52 RBC 5.17 Hgb 16.5 H Hct 47.1 H MCV 91 MCH 31.9 MCHC 35.0 RDW 12.0 Plt Count 153 MPV 9.5 Immature Gran % 0.4 Neutrophils % 64.4 Lymphocytes % 23.4 Monocytes % 10.4 Eosinophils % 1.1 Basophils % 0.3 Nucleated RBC % 0.0 Absolute Neutrophils 4.85 Absolute Lymphocytes 1.76 Absolute Monocytes 0.78 Absolute Eosinophils 0.08 Absolute Basophils 0.02 D-Dimer Cancelled Sodium Cancelled Potassium Cancelled Chloride Cancelled Carbon Dioxide Cancelled Anion Gap Cancelled BUN Cancelled Creatinine Cancelled Estimated GFR/1.73 m2 Cancelled Glucose Cancelled Calcium Cancelled Magnesium Cancelled Total Bilirubin Cancelled AST Cancelled ALT Cancelled Alkaline Phosphatase Cancelled Troponin I Cancelled Total Protein Cancelled Albumin Cancelled COVID-19 Source SARS-CoV-2 (PCR) 04/07/22 20:05 WBC RBC Hgb Hct MCV MCH MCHC RDW Plt Count MPV Immature Gran % Neutrophils % Lymphocytes % Monocytes % Eosinophils % Basophils % Nucleated RBC % Absolute Neutrophils Absolute Lymphocytes Absolute Monocytes Absolute Eosinophils Absolute Basophils D-Dimer Sodium Potassium Chloride Carbon Dioxide Anion Gap BUN Creatinine Estimated GFR/1.73 m2 Glucose Calcium Magnesium Total Bilirubin AST ALT Alkaline Phosphatase Troponin I Total Protein Albumin COVID-19 Source Nasal/Nares SARS-CoV-2 (PCR) Negative PFSH All Active Problems Chest pain (Acute) Social History Smoking/Tobacco Use Status: Never Smoking risk assessment performed?: Yes Alcohol Intake: current Alcohol Intake frequency: a few times a week Alcohol type: beer Drug use: Never Substance use type: does not use Do you feel safe at home: Yes Do you feel safe in your relationship?: Yes
== END 2022-04-08 13:24 | disposition home or self-care (01) ==
LOC: ER 04-08 00:38 → MS 04-08 01:04
PROVIDERS: Admitting Provider General Practice; Emergency Provider Physician Assistant; PCP General Practice; Visit Provider General Practice
DX: R07.9 Chest pain, unspecified (principal); R00.0 Tachycardia, unspecified; N28.1 Cyst of kidney, acquired; Z82.49 Family history of ischemic heart disease and other diseases of the circulatory system; I10 Essential (primary) hypertension; Z20.822 Contact with and (suspected) exposure to COVID-19; I51.7 Cardiomegaly; I25.10 Atherosclerotic heart disease of native coronary artery without angina pectoris
CPT/HCPCS: 36415; 71275; 80053; 87635; 93005; 96361; 96374; 99284; 99285; 71045; 83735; 84484; 85025; 85379; 93010; 93017; 99217; 99219; G0378; J3490

== ENCOUNTER → 2022-04-08 11:27 | Outpatient (CLI) | payer OTHER, SELFPAY | PROVIDERS: PCP General Practice; Visit Provider General Practice ==

== ENCOUNTER 2022-05-23 03:06 | Outpatient (CLI) | payer OTHER, SELFPAY ==
[2022-05-23 08:54] LABS: Calculated LDL 129 mg/dL (<100); Cholesterol 221 mg/dL (<200); HDL Cholesterol 77 mg/dL (40-60); Triglyceride 79 mg/dL (<150)
[2022-05-24 11:33] LABS: HBs Antibody, Qual Negative (See Note); HBs Antibody, Quant <3.1 mIU/mL (See Note); Hepatitis B Core Antibody Negative (Negative); Hepatitis B surface Ag Negative (Negative); Hepatitis C Ab w Rflx HCV PCR Negative (Negative)
== END 2022-05-23 03:07 | disposition home or self-care (01) ==
LOC: LBO 03:06
PROVIDERS: PCP Family Medicine; Visit Provider Family Medicine
DX: R79.89 Other specified abnormal findings of blood chemistry (principal); I10 Essential (primary) hypertension; Z00.00 Encounter for general adult medical examination without abnormal findings
CPT/HCPCS: 36415; 80061; 86704; 86706; 86803; 87340

== ENCOUNTER 2022-07-18 04:00 | Outpatient (CLI) | payer OTHER, SELFPAY ==
[2022-07-18 11:40] LABS: ALT 56 U/L (16-63); AST 42 U/L (15-37); Albumin 4.6 g/dL (3.4-5.0); Alkaline Phosphatase 58 U/L (46-116); Anion Gap 9.4 mmol/L (3-11); BUN 15 mg/dL (7-18); Bilirubin, Total 1.1 mg/dL (0.2-1.0); CO2 28.6 mmol/L (21.0-32.0); CREATININE 0.8 mg/dL (0.70-1.30); Calcium 9.1 mg/dL (8.5-10.1); Chloride 94 mmol/L (98-107); Estimated GFR 99.44 (mL/min/1.73m2); Glucose 91 mg/dL (74-106); Sodium 132 mmol/L (136-145); Total Protein 7.4 g/dL (6.4-8.2)
== END 2022-07-18 04:01 | disposition home or self-care (01) ==
LOC: LBO 04:00
PROVIDERS: PCP Family Medicine; Visit Provider Family Medicine
DX: I10 Essential (primary) hypertension (principal); Z00.00 Encounter for general adult medical examination without abnormal findings
CPT/HCPCS: 36415; 80053

== ENCOUNTER 2023-11-27 05:17 | Outpatient (CLI) | payer OTHER, SELFPAY ==
[2023-11-27 07:29] LABS: Abs Immature Grans 0.04 10^3/uL (0.0-0.06); Absolute Basophil Count 0.01 10^3/uL (0.0-0.2); Absolute Eosinophil Count 0.08 10^3/uL (0.0-0.7); Absolute Lymphocyte Count 2.11 10^3/uL (1.2-3.4); Absolute Monocyte Count 0.89 10^3/uL (0.1-0.8); Absolute Neutrophil Count 4.39 10^3/uL (1.2-6.7); Basophils % 0.1; Eosinophils % 1.1; HCT 39.8 % (40.0-50.0); HGB 14.1 g/dL (13.5-17.5); Immature Grans % 0.5; Lymphocytes % 28.1; MCH 31.9 pg (27.0-33.0); MCHC 35.4 % (32.0-36.0); MCV 90 fL (80-95); MPV 9.5 fL (8.0-11.0); Monocytes % 11.8; Neutrophils % 58.4; Platelet Count 197 10^3/uL (130-400); RBC 4.42 10^6/uL (4.36-5.78); RDW 11.9 % (11.8-14.1); RDW-SD 39.4 fL; WBC 7.52 10^3/uL (4.4-10.8)
[2023-11-27 07:46] LABS: ALT 119 U/L (16-63); AST 74 U/L (15-37); Albumin 4.5 g/dL (3.4-5.0); Alkaline Phosphatase 59 U/L (46-116); Anion Gap 10.1 mmol/L (3-11); BUN 13 mg/dL (7-18); Bilirubin, Total 0.8 mg/dL (0.2-1.0); CO2 26.9 mmol/L (21.0-32.0); Calcium 9.3 mg/dL (8.5-10.1); Chloride 96 mmol/L (98-107); Estimated GFR 84.05 (mL/min/1.73m2); Glucose 108 mg/dL (74-106); Potassium 4.3 mmol/L (3.5-5.1); Sodium 133 mmol/L (136-145); Total Protein 7.2 g/dL (6.4-8.2)
[2023-11-27 07:54] LABS: Calculated LDL 53 mg/dL (<100); Cholesterol 152 mg/dL (<200); HDL Cholesterol 91 mg/dL (40-60); TSH (W/Ref FT4) 1.77 uIU/mL (0.36-3.74); Triglyceride 44 mg/dL (<150)
[2023-11-27 17:57] LABS: PSA, Screening 0.9 ng/mL (<=4.5)
== END 2023-11-27 05:18 | disposition home or self-care (01) ==
LOC: LBO 05:17
PROVIDERS: Nurse Practitioner Family; PCP Family Medicine; Visit Provider Family Medicine
DX: Z00.00 Encounter for general adult medical examination without abnormal findings (principal); Z12.5 Encounter for screening for malignant neoplasm of prostate; I10 Essential (primary) hypertension; Z13.6 Encounter for screening for cardiovascular disorders
CPT/HCPCS: 36415; 80053; 80061; 84153; 84443; 85025

== ENCOUNTER 2023-12-17 05:21 | Outpatient (CLI) | payer OTHER, SELFPAY ==
[2023-12-17 12:50] LABS: ALT 52 U/L (16-63); AST 37 U/L (15-37); Albumin 4.2 g/dL (3.4-5.0); Alkaline Phosphatase 51 U/L (46-116); Anion Gap 7.4 mmol/L (3-11); BUN 9 mg/dL (7-18); Bilirubin, Total 0.7 mg/dL (0.2-1.0); CO2 29.6 mmol/L (21.0-32.0); CREATININE 0.8 mg/dL (0.70-1.30); Calcium 9.1 mg/dL (8.5-10.1); Chloride 97 mmol/L (98-107); Estimated GFR 98.83 (mL/min/1.73m2); Glucose 96 mg/dL (74-106); Potassium 3.8 mmol/L (3.5-5.1); Sodium 134 mmol/L (136-145)
== END 2023-12-17 05:22 | disposition home or self-care (01) ==
LOC: LOS 05:21
PROVIDERS: PCP Family Medicine; Visit Provider Nurse Practitioner Family
DX: R79.89 Other specified abnormal findings of blood chemistry (principal); I10 Essential (primary) hypertension; E78.5 Hyperlipidemia, unspecified
CPT/HCPCS: 36415; 80053

== ENCOUNTER 2024-06-23 01:33 | Outpatient (CLI) | payer OTHER, SELFPAY ==
--- NOTE | 2024-06-23 06:15 | DI.RAD_ITS ---
Exam(s) XR SHOULDER LT COMPLETE 2+V EXAM: XR SHOULDER LT COMPLETE 2+V CLINICAL HISTORY: left shoulder pain,m25.512. TECHNIQUE: 2D digital imaging was performed of the left shoulder. Five images were obtained. AP, G rashey, Y-view and axillary views were obtained. COMPARISON: CT CT CHEST PE CTA from 04/07/2022 CR,XR XR PORTABLE CHEST AP from 04/07/2022 FINDINGS: BONES: No acute fracture is present. No bony destructive lesion is seen. JOINTS: No dislocation present. There are mild degenerative changes seen at both the acromioclavicula r and glenohumeral joints. There is a 5 mm density at the inferior aspect of the glenohumeral joint. This was present on the CT scan of the chest from 04/07/2022. It lies at the anterior inferior aspe ct of the glenoid and may represent a nonunited fracture. This may also represent a loose body. It is unchanged compared to prior examination.. SOFT TISSUE: Normal. IMPRESSION: 1. No acute fracture or dislocation. 2. Degenerative changes seen in the shoulder. DATA REPOSITORY: RADIATION DOSE DELIVERED:
== END 2024-06-23 01:53 ==
LOC: DI 01:33
PROVIDERS: PCP Family Medicine; Visit Provider Family Medicine
DX: M25.512 Pain in left shoulder (principal)
CPT/HCPCS: 73030

== ENCOUNTER 2024-12-07 03:01 | Outpatient (CLI) | payer OTHER, SELFPAY ==
[2024-12-07 10:26] LABS: Anion Gap 5.8 mmol/L (3-11); BUN 16 mg/dL (7-18); CO2 29.2 mmol/L (21.0-32.0); CREATININE 0.9 mg/dL (0.70-1.30); Calcium 9.2 mg/dL (8.5-10.1); Chloride 100 mmol/L (98-107); Estimated GFR 94.78 (mL/min/1.73m2); Glucose 106 mg/dL (74-106); Potassium 3.8 mmol/L (3.5-5.1); Sodium 135 mmol/L (136-145)
[2024-12-07 11:04] LABS: PROTEIN < 6.0 mg/dL
== END 2024-12-07 03:02 | disposition home or self-care (01) ==
PROVIDERS: PCP Family Medicine; Visit Provider Family Medicine
DX: Z00.00 Encounter for general adult medical examination without abnormal findings (principal)
CPT/HCPCS: 36415; 80048; 82565; 84156